=== PATIENT | female | born 1955 | race Asian ===

== ENCOUNTER 2018-08-09 13:24 | Emergency (ER) | payer MEDICARE, MEDICAID ==
[~2018-08-09] VITALS: Ht 152.4 cm; Wt 45.4 kg
[2018-08-09 13:33] VITALS: BP 126/84
[2018-08-09] MEDS ORDERED: Methocarbamol 500mg tab ORAL ONE (13:45)
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
[2018-08-09] MEDS ORDERED: TYLENOL EXTRA500 MG ORAL (13:48)
[2018-08-09] MEDS ORDERED: ROBAXIN-750750 MG PO (13:48)
[2018-08-09 14:52] VITALS: BP 126/84
== END 2018-08-09 14:52 | disposition home or self-care (01) ==
LOC: EDBD 13:24 → EMR 13:48
DX: M54.5 Low back pain (principal); M79.604 Pain in right leg; V43.52XA Car driver injured in collision with other type car in traffic accident, initial encounter; Y92.410 Unspecified street and highway as the place of occurrence of the external cause
CPT/HCPCS: 99283